=== PATIENT | female | born 1995 | race Two or more races ===

== ENCOUNTER 2023-09-18 06:12 | Emergency (ER) | payer OTHER ==
[~2023-09-18] VITALS: Ht 160 cm; Wt 47.6 kg
[2023-09-18] MEDS ORDERED: CEFTRIAXONE SODIUM 1,000 MG VIAL IV STA (07:42)
[2023-09-18] MEDS ORDERED: KETOROLAC TROMETHAMINE 30 MG VIAL IV STA (07:42)
[2023-09-18] MEDS ORDERED: TETANUS & DIPHTHERIA TOX,ADULT 0.5 ML VIAL IM STA (07:42)
[2023-09-18 08:27] LABS: HEMATOCRIT 39.1 % (36.0-45.00); HEMOGLOBIN 13.2 g/dL (12.0-15.00); MEAN CELL VOLUME 90.6 fL (80.00-100.00); MEAN CORPUSCULAR HEMOGLOBIN 30.6 pg (27.00-32.0); MEAN CORPUSCULAR HGB CONC 33.8 g/dl (32.0-36.0); PLATELET COUNT 144 K/uL (150-450); RED BLOOD COUNT 4.32 M/uL (4.00-6.00); RED CELL DISTRIBUTION WIDTH 13.4 % (11.5-14.5)
[2023-09-18 08:59] LABS: ANION GAP 10 (10.0-20.0); BLOOD UREA NITROGEN 11 mg/dL (7-18); BUN CREA RATIO 17 (7.0-25.0); CALCIUM 9.4 mg/dL (8.5-10.1); CARBON DIOXIDE 27 mEq/L (21-32); CHLORIDE 106 mmol/L (98-107); CREATININE SERUM 0.66 mg/dL (0.55-1.02); GFR 108.25; GLUCOSE FASTING 90 mg/dL (65-100); HCG QUANTITATIVE < 1 mUI/mL (1-3); OSMOLALITY SERUM 276 MOSM/KG (275-295); POTASSIUM 4.05 mEq/L (3.5-5.1); SODIUM 139 mmol/L (136-145)
== END 2023-09-18 13:12 | disposition home or self-care (01) ==
LOC: ER 06:14 → EDBD 06:51 → ER 06:51
PROVIDERS: General Practice
DX: S91.312A Laceration without foreign body, left foot, initial encounter (principal); S99.822A Other specified injuries of left foot, initial encounter; W45.8XXA Other foreign body or object entering through skin, initial encounter; W26.8XXA Contact with other sharp object(s), not elsewhere classified, initial encounter; Y93.18 Activity, surfing, windsurfing and boogie boarding; Y92.832 Beach as the place of occurrence of the external cause

== ENCOUNTER 2023-09-29 18:37 | Emergency (ER) | payer OTHER ==
[~2023-09-29] VITALS: Ht 160 cm; Wt 47.6 kg
[2023-09-29] MEDS ORDERED: CEFTRIAXONE SODIUM 1,000 MG VIAL IM ONE (20:30)
== END 2023-09-29 20:30 | disposition home or self-care (01) ==
LOC: ER 18:38
DX: Z48.02 Encounter for removal of sutures (principal)